=== PATIENT | female | born 1995 | race Caucasian/White ===

== ENCOUNTER → 2021-10-17 | Outpatient (CLI) | payer OTHER | END | disposition home or self-care (01) | LOC: LAB 14:56 | PROVIDERS: ATTEND Obstetrics & Gynecology | DX: O03.9 Complete or unspecified spontaneous abortion without complication (principal) ==

== ENCOUNTER → 2021-10-31 | Outpatient (CLI) | payer OTHER | END | disposition home or self-care (01) | LOC: LAB 14:29 | PROVIDERS: ATTEND Obstetrics & Gynecology | DX: O03.9 Complete or unspecified spontaneous abortion without complication (principal) ==

== ENCOUNTER → 2021-11-07 | Outpatient (CLI) | payer OTHER | END | disposition home or self-care (01) | LOC: LAB 17:23 | PROVIDERS: ATTEND Obstetrics & Gynecology | DX: O03.9 Complete or unspecified spontaneous abortion without complication (principal) ==

== ENCOUNTER → 2021-11-15 | Outpatient (CLI) | payer OTHER | LOC: LAB 14:03 | PROVIDERS: ATTEND Obstetrics & Gynecology | DX: O03.0 Genital tract and pelvic infection following incomplete spontaneous abortion (principal) ==

== ENCOUNTER → 2023-11-08 | Outpatient (CLI) | payer OTHER | END | disposition home or self-care (01) | LOC: US 07:18 | PROVIDERS: ATTEND Nurse Practitioner Family | DX: I83.90 Asymptomatic varicose veins of unspecified lower extremity (principal); M79.604 Pain in right leg; M79.605 Pain in left leg ==

== ENCOUNTER → 2025-04-15 | Outpatient (CLI) | payer OTHER | END | disposition home or self-care (01) | LOC: US 10:53 | PROVIDERS: ATTEND Nurse Practitioner Obstetrics & Gynecology | DX: N83.292 Other ovarian cyst, left side (principal); N83.291 Other ovarian cyst, right side; N92.6 Irregular menstruation, unspecified; Z30.431 Encounter for routine checking of intrauterine contraceptive device ==